=== PATIENT | male | born 1990 | race Caucasian/White ===

== ENCOUNTER 2016-09-30 08:28 | Emergency (ER) | payer OTHER ==
--- NOTE | ~2016-09-30 | ER ---
PATIENT'S NAME: VIRGILIO SMYTH [facility] AGE: 25 Y [address] ROOM: [place] [id number] LOCATION: [facility] ADMIT DATE: 09/30/2016 ER/Outpatient Report DISCHARGE DATE: 09/30/2016 FAMILY PHYSICIAN: PHYSICIAN, NO ATTENDING PHYSICIAN: Darron Wei TIME OF ARRIVAL: 0828 hours. TIME OF EVALUATION: 0828 hours. CHIEF COMPLAINT: Mouth pain. HISTORY OF PRESENT ILLNESS: The patient is a 25-year-old male who presents to the emergency department today with a chief complaint of mouth pain. The patient reports that he noticed it 2 days prior to arrival on the left side of his mouth. He reports that the swelling worsened last night. He denies any fevers or chills. Does have pain to left lower jaw. Denies any nausea or vomiting. No diarrhea or constipation. No sore throat. PAST MEDICAL HISTORY: Dental caries. PAST SURGICAL HISTORY: None. SOCIAL HISTORY: The patient smokes, also uses chewing tobacco. Denies any alcohol or illicit drug use. ALLERGIES: NO KNOWN DRUG ALLERGIES. MEDICATIONS: None. PRIMARY CARE DOCTOR: None. DENTIST: None. PATIENT'S NAME: VIRGILIO SMYTH [facility] AGE: 25 Y [address] ROOM: [place] [id number] LOCATION: [facility] ADMIT DATE: 09/30/2016 ER/Outpatient Report DISCHARGE DATE: 09/30/2016 FAMILY PHYSICIAN: PHYSICIAN, NO ATTENDING PHYSICIAN: Darron Wei REVIEW OF SYSTEMS: All systems are reviewed by myself and are negative with the exception of those discussed in the HPI and Past Medical History. PHYSICAL EXAMINATION: VITAL SIGNS: Weight 67.4 kg, blood pressure 143/91, pulse 62, respiratory rate 18, temperature 98.2, and oxygen saturation 95% on room air. GENERAL: The patient is a 25-year-old male, well developed, well nourished, in no acute distress at this time. HEENT: Head is normocephalic and atraumatic. Pupils are equal, round, and reactive to light. Oropharynx is clear. There is no Kevin angina. The patient does have multiple dental caries in various stages of decay. The patient does have swelling noted to the left lower jaw. There is fluctuance palpated. Nares are patent bilaterally. NECK: Supple. There is no nuchal rigidity. CARDIOVASCULAR: Regular rate and rhythm. No murmurs, rubs, or gallops. LUNGS: Clear to auscultation bilaterally. No wheezes, rales, or rhonchi. ABDOMEN: Soft, nontender, and nondistended. No rebound, rigidity, or guarding. MUSCULOSKELETAL: The patient moves all 4 extremities. SKIN: Warm and dry. There are no rashes or lesions noted. LABORATORY AND X-RAY DATA: None. IMPRESSION: 1. Periapical abscess, status post incision and drainage. 2. Initial visit. EMERGENCY DEPARTMENT COURSE: The patient was brought back to the examination room. Seen and evaluated by myself. I have discussed apical abscess with the patient. I have recommended incision and drainage. A stab incision is performed. The area is anesthetized with infra-alveolar nerve block to the left side. There is also local infiltration at the stab incision site. Incision and drainage is performed with an 11 blade with a stab-type incision. There is copious amounts of purulent drainage that is removed. Pressure is held. Wound is explored. I have discussed with the patient he is to follow up with a dentist in 2 to 3 days for re-evaluation as well as primary care doctor in 2 to 3 days. I have discussed that we will place the patient on Naprosyn for pain as well as Penicillin-VK. I have discussed return to care instructions including high fevers, worsening pain, or any other concerns, to return to the emergency department as soon as possible. The patient is agreeable without further questions at this time. PATIENT'S NAME: VIRGILIO SMYTH [facility] AGE: 25 Y [address] ROOM: [place], [place] [id number] LOCATION: [facility] ADMIT DATE: 09/30/2016 ER/Outpatient Report DISCHARGE DATE: 09/30/2016 FAMILY PHYSICIAN: PHYSICIAN, NO ATTENDING PHYSICIAN: Darron Wei DISPOSITION: The patient is discharged to home in good condition. DO DEREK HANSEN/alexander /[id number] P d: 09/30/16 1146 t: 10/01/16 0840, OUTPATIENT REPORT
== END 2016-09-30 09:15 | disposition disaster alternative care site (69) ==
LOC: GMED 08:28
PROC: 0C9XXZ0 Drainage of Lower Tooth, External Approach, Single (ICD-10-PCS; principal; 2016-09-30)
DX: K04.7 Periapical abscess without sinus (principal); F17.220 Nicotine dependence, chewing tobacco, uncomplicated